=== PATIENT | female | born 1970 | race Hispanic/Latino ===

== ENCOUNTER 2020-09-30 21:55 | Emergency (ER) | payer MEDICAID ==
[~2020-09-30 21:55] MED LIST: FAMO20TA8 PO; LACT20PA6 PO
[2020-09-30] MEDS ORDERED: CEFTRIAXONE SODIUM 1 GM ONE (22:46)
[2020-09-30] MEDS ORDERED: KETOROLAC TROMETHAMINE 30MG/ML ONE (22:46)
[2020-09-30] MEDS ORDERED: LIDOCAINE HCL-MPF 1% 2ML VIAL ONE (22:46)
[2020-09-30] MEDS ORDERED: ACETAMINOPHEN-CODEINE 300/30MG TAB ONE (22:47)
== END 2020-10-01 01:55 | disposition home or self-care (01) ==
LOC: EDH 21:55
DX: K02.9 Dental caries, unspecified (principal); K08.89 Other specified disorders of teeth and supporting structures; Z88.8 Allergy status to other drugs, medicaments and biological substances; H91.3 Deaf nonspeaking, not elsewhere classified
CPT/HCPCS: 96372 ×2; 99284; J0696; J1885; J3490